=== PATIENT | male | born 1955 | race Caucasian/White ===

== ENCOUNTER 2021-04-04 16:35 | Emergency (ER) | payer OTHER, MEDICARE, SELFPAY ==
[2021-04-04 16:43] VITALS: BP 141/90; PULSE 83; RESP 18; TEMP 36.7; O2SAT 96; BMI 21.6
--- NOTE | 2021-04-04 17:18 | PC.PHAR ---
PT STATES HE TAKES CARE OF HIS OWN MEDICATIONS-[facility]--PT STATES HE TAKES GABAPENTIN BUT IS UNSURE THE MG-PT STATES IT WAS PRESCRIBED 1 CAP TID BUT ONLY TAKES 1 CAP BID-PT STATES HE TAKES OTC SUPPLEMENTS BUT IS UNSURE OF THE NAMES
[2021-04-04 17:29] LABS: Basophils # 0.1 10^3/uL (0.0-0.1); Basophils % 1.2 %; Eosinophils # 0.1 10^3/uL (0.0-0.8); Eosinophils % 1.8 %; Hematocrit 46.9 % (42.0-52.0); Hemoglobin 15.8 g/dL (11.7-16.6); Lymphocytes # 1.9 10^3/uL (0.8-4.8); Lymphocytes % 29.6 %; Mean Corpuscular HGB Conc 33.7 g/dL (30.0-36.0); Mean Corpuscular Hemoglobin 32.1 pg (28.0-34.0); Mean Corpuscular Volume 95.3 fl (80-94); Mean Platelet Volume 9.9 fL (7.4-10.4); Monocytes # 0.4 10^3/uL (0.2-0.9); Monocytes % 6.1 %; Neutrophils # 4.02 10^3/uL (1.8-7.7); Neutrophils % 61.3 %; Nucleated Red Blood Cells % 0 %; Platelet Count 244 10^3/cmm (130-400); Red Blood Count 4.92 10^6/uL (4.1-5.3); Red Cell Distribution Width 12.8 % (12.1-15.1); White Blood Count 6.6 10^3/uL (4.0-10.0)
--- NOTE | 2021-04-04 17:44 | W.ED.GENADLT ---
Documented by User: Jean Pierre Farris MD 04/07/21 19:51 HPI - General Adult General: Chief complaint: Psychiatric Symptoms Stated complaint: DELUSIONS Time Seen by Provider: 04/04/21 16:57 History of Present Illness: HPI narrative: HPI: [65]yo patient w/ hx of PTSD BIBA for worsening anxiety, panic attacks, and debilitating PTSD episodes. for On arrival, the patient is AAOx3 and cooperative with my evaluation. No focal complaints of chest pain, shortness of breath, palpitations, N/V, focal GI/ complaints. Patient reports delusion of hearing the enemies telling me to do things. Onset: chronic Duration: ongoing Location: home Severity: severe Review of Systems Narrative: Constitutional: No fever, no chills. HEENT: No vision changes CV: No chest pain, no palpitations PULM: No productive cough, no dyspnea. GI: No abdominal pain, no N/V/D. : No dysuria MSKEL: No muscle pain SKIN: No new rashes, no lesions. NEURO: No headache, no focal weakness. HEME: No visible bruises PSYCH: Normal mood, +PTSD, +panic attacks Physical Exam Narrative: EXAM NARRATIVE: Head: Atraumatic Eyes: PERRL, conjunctiva without injection, eyes tracking ENT: Mucous membrane moist NECK: Supple without lymphadenopathy LUNGS: LCTAB CV: RRR ABDOMEN: Soft, nontender EXTREMITY: Normal ROM SKIN: No rash or erythema NEURO: Awake and alert. No focal weakness PSYCH: Cooperative mood and affect. Course Vital Signs: Vital signs: Vital Signs Temperature 98.3 F 04/04/21 17:59 Pulse Rate 71 04/05/21 10:42 Respiratory Rate 14 04/05/21 10:42 Blood Pressure 94/69 04/05/21 10:42 Pulse Oximetry 95 04/05/21 10:42 MDM - General Adult MDM Narrative: Medical decision making narrative: [65]yo patient w/ hx of PTSD and anxiety presenting for anxiety, panic attack, and psychosis. HDS, exam within normal limit Thoughts are linear and organized, and the patient has no AH/VH, or HI. Patient is unable to take care of himself. Clinically the patient displays no overt toxidrome; they are well appearing, with low suspicion for toxic ingestion given history and exam. Symptoms unlikely 2/2 anemia, hypothyroidism, infection, or ICH. Workup: CBC, CMP, Lipase, salicylate/tylenol, serum ethanol, UDS Lab findings: wnl [6:53pm] On reassessment, labs and workup wnl. Patient is hemodynamically stable with no acute medical complaints. Given significant PTSD symptoms, delusion and inability to take care of self, patient will be transferred to [facility] for stabilization. Disposition: Transfer to outside ED for joyce psych stabilization Lab Data: Labs: Lab Results 04/04/21 04/04/21 04/04/21 17:21 17:21 17:21 WBC 6.6 10^3/uL 10^3/ uL (4.0-10.0) RBC 4.92 10^6/uL 10^6 /uL (4.1-5.3) Hgb 15.8 g/dL g/dL (11.7-16.6) Hct 46.9 % % (42.0-52.0) MCV 95.3 fl H fl (80-94) MCH 32.1 pg pg (28.0-34.0) MCHC 33.7 g/dL g/dL (30.0-36.0) RDW 12.8 % % (12.1-15.1) Plt Count 244 10^3/cmm 10^3 /cmm (130-400) MPV 9.9 fL fL (7.4-10.4) Neut % (Auto) 61.3 % % Lymph % (Auto) 29.6 % % [place] % (Auto) 6.1 % % Eos % (Auto) 1.8 % % Baso % (Auto) 1.2 % % Neut # (Auto) 4.02 10^3/uL 10^3 /uL (1.8-7.7) Lymph # (Auto) 1.9 10^3/uL 10^3/ uL (0.8-4.8) [place] # (Auto) 0.4 10^3/uL 10^3/ uL (0.2-0.9) Eos # (Auto) 0.1 10^3/uL 10^3/ uL (0.0-0.8) Baso # (Auto) 0.1 10^3/uL 10^3/ uL (0.0-0.1) Nucleated RBC % (a uto) 0 % % Nucleated RBCs # 0.0 /100WBC /100W BC Sodium 138 mmol/L mmol/L (136-145) Potassium 4.1 mmol/L mmol/L (3.5-5.1) Chloride 104 mmol/L mmol/L (98-107) Carbon Dioxide 25 mmol/L mmol/L (22-29) Anion Gap 13.1 (5-19) BUN 13 mg/dL mg/dL (8-23) Creatinine 0.8 mg/dL mg/dL (0.7-1.2) GFR Calculation 97.0 mL/min mL/mi n (90-130) Glucose 87 mg/dL mg/dL (65-115) Calculated Osmolal ity 285 mOsm/kg mOsm/ kg (285-295) Calcium 9.2 mg/dL mg/dL (8.5-10.5) Troponin T Gen 5 n g/L Salicylates < 0.3 mg/dL L mg/ dL (3-10) Urine Opiates Scre en Acetaminophen < 5.0 ug/mL L ug/ mL (10-30) Ur Barbiturates Sc reen Ur Phencyclidine S crn Ur Amphetamines Sc reen U Benzodiazepines Scrn Urine Cocaine Scre en U Marijuana (THC) Screen Ethyl Alcohol < 10 mg/dL mg/dL (0-10) Nasal/Oral COVID-1 9 PCR SARS-CoV-2 RNA (RT -PCR) SARS-CoV-2 Ag (Rap id) 04/04/21 04/04/21 04/04/21 18:20 18:20 19:01 WBC RBC Hgb Hct MCV MCH MCHC RDW Plt Count MPV Neut % (Auto) Lymph % (Auto) [place] % (Auto) Eos % (Auto) Baso % (Auto) Neut # (Auto) Lymph # (Auto) [place] # (Auto) Eos # (Auto) Baso # (Auto) Nucleated RBC % (a uto) Nucleated RBCs # Sodium Potassium Chloride Carbon Dioxide Anion Gap BUN Creatinine GFR Calculation Glucose Calculated Osmolal ity Calcium Troponin T Gen 5 n g/L 11 ng/L ng/L (0-15) Salicylates Urine Opiates Scre en Acetaminophen Ur Barbiturates Sc reen Ur Phencyclidine S crn Ur Amphetamines Sc reen U Benzodiazepines Scrn Urine Cocaine Scre en U Marijuana (THC) Screen Ethyl Alcohol Nasal/Oral COVID-1 9 PCR Not detected SARS-CoV-2 RNA (RT -PCR) SARS-CoV-2 Ag (Rap id) Negative (Negative) 04/04/21 04/04/21 19:27 Unknown WBC RBC Hgb Hct MCV MCH MCHC RDW Plt Count MPV Neut % (Auto) Lymph % (Auto) [place] % (Auto) Eos % (Auto) Baso % (Auto) Neut # (Auto) Lymph # (Auto) [place] # (Auto) Eos # (Auto) Baso # (Auto) Nucleated RBC % (a uto) Nucleated RBCs # Sodium Potassium Chloride Carbon Dioxide Anion Gap BUN Creatinine GFR Calculation Glucose Calculated Osmolal ity Calcium Troponin T Gen 5 n g/L Salicylates Urine Opiates Scre en Negative ng/mL ng /mL (Negative) Acetaminophen Ur Barbiturates Sc reen Negative ng/mL ng /mL (Negative) Ur Phencyclidine S crn Negative ng/mL ng /mL (Negative) Ur Amphetamines Sc reen Positive ng/mL H ng/mL (Negative) U Benzodiazepines Scrn Negative ng/mL ng /mL (Negative) Urine Cocaine Scre en Negative ng/mL ng /mL (Negative) U Marijuana (THC) Screen Positive ng/mL H ng/mL (Negative) Ethyl Alcohol Nasal/Oral COVID-1 9 PCR SARS-CoV-2 RNA (RT -PCR) Cancelled SARS-CoV-2 Ag (Rap id) Discharge Plan Discharge Patient Disposition: Transfer to ED Clinical Impression: Acute post-traumatic stress disorder, Depression, Delusion Condition: Stable Prescriptions: No Action protein Powder 1 ea PO BID RF: 0 Otc Supplements See Rx Instructions .ROUTE .COMPLEX RF: 0 gabapentin 1 cap PO BID RF: 0 Coding Level of Care Code ED Transportation Maintenance Specialist for Chg Fwd Documented by User: Tiki Scott MD 04/05/21 01:54 HPI - General Adult General: Chief complaint: Psychiatric Symptoms Stated complaint: DELUSIONS Time Seen by Provider: 04/04/21 16:57 Course Vital Signs: Vital signs: Vital Signs Temperature 98.3 F 04/04/21 17:59 Pulse Rate 71 04/05/21 10:42 Respiratory Rate 14 04/05/21 10:42 Blood Pressure 94/69 04/05/21 10:42 Pulse Oximetry 95 04/05/21 10:42 MDM - General Adult MDM Narrative: Medical decision making narrative: Patient presents here with depression and suicidal thoughts and PTSD. Patient accepted to [facility] patient is medically cleared and will transfer there. Lab Data: Labs: Lab Results 04/04/21 04/04/21 04/04/21 17:21 17:21 17:21 WBC 6.6 10^3/uL 10^3/ uL (4.0-10.0) RBC 4.92 10^6/uL 10^6 /uL (4.1-5.3) Hgb 15.8 g/dL g/dL (11.7-16.6) Hct 46.9 % % (42.0-52.0) MCV 95.3 fl H fl (80-94) MCH 32.1 pg pg (28.0-34.0) MCHC 33.7 g/dL g/dL (30.0-36.0) RDW 12.8 % % (12.1-15.1) Plt Count 244 10^3/cmm 10^3 /cmm (130-400) MPV 9.9 fL fL (7.4-10.4) Neut % (Auto) 61.3 % % Lymph % (Auto) 29.6 % % [place] % (Auto) 6.1 % % Eos % (Auto) 1.8 % % Baso % (Auto) 1.2 % % Neut # (Auto) 4.02 10^3/uL 10^3 /uL (1.8-7.7) Lymph # (Auto) 1.9 10^3/uL 10^3/ uL (0.8-4.8) [place] # (Auto) 0.4 10^3/uL 10^3/ uL (0.2-0.9) Eos # (Auto) 0.1 10^3/uL 10^3/ uL (0.0-0.8) Baso # (Auto) 0.1 10^3/uL 10^3/ uL (0.0-0.1) Nucleated RBC % (a uto) 0 % % Nucleated RBCs # 0.0 /100WBC /100W BC Sodium 138 mmol/L mmol/L (136-145) Potassium 4.1 mmol/L mmol/L (3.5-5.1) Chloride 104 mmol/L mmol/L (98-107) Carbon Dioxide 25 mmol/L mmol/L (22-29) Anion Gap 13.1 (5-19) BUN 13 mg/dL mg/dL (8-23) Creatinine 0.8 mg/dL mg/dL (0.7-1.2) GFR Calculation 97.0 mL/min mL/mi n (90-130) Glucose 87 mg/dL mg/dL (65-115) Calculated Osmolal ity 285 mOsm/kg mOsm/ kg (285-295) Calcium 9.2 mg/dL mg/dL (8.5-10.5) Troponin T Gen 5 n g/L Salicylates < 0.3 mg/dL L mg/ dL (3-10) Urine Opiates Scre en Acetaminophen < 5.0 ug/mL L ug/ mL (10-30) Ur Barbiturates Sc reen Ur Phencyclidine S crn Ur Amphetamines Sc reen U Benzodiazepines Scrn Urine Cocaine Scre en U Marijuana (THC) Screen Ethyl Alcohol < 10 mg/dL mg/dL (0-10) Nasal/Oral COVID-1 9 PCR SARS-CoV-2 RNA (RT -PCR) SARS-CoV-2 Ag (Rap id) 04/04/21 04/04/21 04/04/21 18:20 18:20 19:01 WBC RBC Hgb Hct MCV MCH MCHC RDW Plt Count MPV Neut % (Auto) Lymph % (Auto) [place] % (Auto) Eos % (Auto) Baso % (Auto) Neut # (Auto) Lymph # (Auto) [place] # (Auto) Eos # (Auto) Baso # (Auto) Nucleated RBC % (a uto) Nucleated RBCs # Sodium Potassium Chloride Carbon Dioxide Anion Gap BUN Creatinine GFR Calculation Glucose Calculated Osmolal ity Calcium Troponin T Gen 5 n g/L 11 ng/L ng/L (0-15) Salicylates Urine Opiates Scre en Acetaminophen Ur Barbiturates Sc reen Ur Phencyclidine S crn Ur Amphetamines Sc reen U Benzodiazepines Scrn Urine Cocaine Scre en U Marijuana (THC) Screen Ethyl Alcohol Nasal/Oral COVID-1 9 PCR Not detected SARS-CoV-2 RNA (RT -PCR) SARS-CoV-2 Ag (Rap id) Negative (Negative) 04/04/21 04/04/21 19:27 Unknown WBC RBC Hgb Hct MCV MCH MCHC RDW Plt Count MPV Neut % (Auto) Lymph % (Auto) [place] % (Auto) Eos % (Auto) Baso % (Auto) Neut # (Auto) Lymph # (Auto) [place] # (Auto) Eos # (Auto) Baso # (Auto) Nucleated RBC % (a uto) Nucleated RBCs # Sodium Potassium Chloride Carbon Dioxide Anion Gap BUN Creatinine GFR Calculation Glucose Calculated Osmolal ity Calcium Troponin T Gen 5 n g/L Salicylates Urine Opiates Scre en Negative ng/mL ng /mL (Negative) Acetaminophen Ur Barbiturates Sc reen Negative ng/mL ng /mL (Negative) Ur Phencyclidine S crn Negative ng/mL ng /mL (Negative) Ur Amphetamines Sc reen Positive ng/mL H ng/mL (Negative) U Benzodiazepines Scrn Negative ng/mL ng /mL (Negative) Urine Cocaine Scre en Negative ng/mL ng /mL (Negative) U Marijuana (THC) Screen Positive ng/mL H ng/mL (Negative) Ethyl Alcohol Nasal/Oral COVID-1 9 PCR SARS-CoV-2 RNA (RT -PCR) Cancelled SARS-CoV-2 Ag (Rap id) Discharge Plan Discharge Patient Disposition: Transfer to ED Clinical Impression: Acute post-traumatic stress disorder, Depression, Delusion Condition: Stable Prescriptions: No Action protein Powder 1 ea PO BID RF: 0 Otc Supplements See Rx Instructions .ROUTE .COMPLEX RF: 0 gabapentin 1 cap PO BID RF: 0 Coding Level of Care Code ED Transportation Maintenance Specialist for Anson Perez
[2021-04-04] MEDS: LORazepam 2 mg Tablet PO (17:57)
[2021-04-04 17:59] VITALS: BP 146/92; PULSE 73; RESP 16; TEMP 36.8; O2SAT 94
[2021-04-04 18:01] LABS: Anion Gap 13.1 (5-19); Blood Urea Nitrogen 13 mg/dL (8-23); Calcium 9.2 mg/dL (8.5-10.5); Carbon Dioxide 25 mmol/L (22-29); Chloride 104 mmol/L (98-107); Glucose 87 mg/dL (65-115); Osmolality Calculated 285 mOsm/kg (285-295); Potassium 4.1 mmol/L (3.5-5.1); Sodium 138 mmol/L (136-145)
[2021-04-04 18:05] LABS: Acetaminophen < 5.0 ug/mL (10-30); Salicylate < 0.3 mg/dL (3-10)
--- NOTE | 2021-04-04 18:05 | ECG_ITS ---
[facility] Test Date: 2021-04-04 Pat Name: Jorge Miller Department: Room: Gender: Male Chargeback Specialist: : 1955 Requested By: Jean Pierre Farris Order Number: [id number] Oakes MD: Roseanne Barkley M.D. Measurements Intervals [place] Rate: 63 P: 67 PA: 164 QRS: 66 QRSD: 94 T: 65 QT: 416 QTc: 426 Interpretive Statements SINUS RHYTHM VOLTAGE CRITERIA FOR LVH [MEETS CRITERIA IN ONE OF: R(aVL), S(V1), R(V5), R(V5/V6)+S(V1)] No previous ECG available for comparison Electronically Signed On 04-04-2021 19:09:42 CDT by Roseanne Barkley M.D. [id number] f
[2021-04-04 19:23] LABS: Alcohol Level < 10 mg/dL (0-10)
[2021-04-04 19:28] LABS: SARS Covid-2 Antigen Negative (Negative)
[2021-04-04 19:42] LABS: Troponin T (5th) Once 11 ng/L (0-15)
[2021-04-04 20:01] LABS: Amphetamines Screen Urine Positive (Negative); Barbiturates Screen Urine Negative (Negative); Benzodiazepines Screen Urine Negative (Negative); Cocaine Screen Urine Negative (Negative); Opiate Screen Urine Negative (Negative); PCP Screen Urine Negative (Negative); THC Screen Urine Positive (Negative)
[2021-04-04 21:59] VITALS: BP 98/53; PULSE 64; RESP 16
--- NOTE | 2021-04-05 02:06 | PC.NURSE ---
Pt. accepted by [facility], [place] [id number] [address]. report called to Megan Wallace RN.
[2021-04-05 04:20] VITALS: BP 103/70; PULSE 63; RESP 16; O2SAT 95
[2021-04-05 06:01] VITALS: BP 122/73; PULSE 63; RESP 18; O2SAT 98
[2021-04-05 06:45] VITALS: PULSE 68; RESP 18
--- NOTE | 2021-04-05 06:46 | PC.NURSE ---
Pt. waiting on transport to [facility]. EMS out on two other calls and will report back to pick patient up about 8 or 8:30
[2021-04-05 09:30] VITALS: BP 106/62; PULSE 65; RESP 14; O2SAT 99
--- NOTE | 2021-04-05 10:23 | PC.NURSE ---
advised by [facility] is en route to pickling operator pt for transfer.
[2021-04-05 10:42] VITALS: BP 94/69; PULSE 71; RESP 14; O2SAT 95
[2021-04-05 14:19] LABS: Coronavirus Test Green County Not Detected
--- NOTE | 2021-04-05 16:47 | PC.NURSE ---
Pt was Transferred [facility] today. Call the facility and informed them , pt does not have COVID
== END 2021-04-05 11:01 ==
PROVIDERS: Emergency Medicine; Emergency Provider Emergency Medicine
DX: F32.A Depression, unspecified (principal); F22 Delusional disorders; F43.11 Post-traumatic stress disorder, acute; Z20.822 Contact with and (suspected) exposure to COVID-19; Z79.899 Other long term (current) drug therapy
CPT/HCPCS: 36415; 80048; 80306; 80307; 84484; 85025; 87426; 87635; 93005; 99285